=== PATIENT | male | born 1980 | race Caucasian/White ===

== ENCOUNTER 2021-01-07 08:10 | Emergency (ER) | payer MEDICAID, OTHER ==
[~2021-01-07] VITALS: Ht 175.3 cm; Wt 106.0 kg
[2021-01-07 08:12] VITALS: BP 144/94
[2021-01-07] MEDS ORDERED: CARBAMIDE PEROXIDE 6.5% OTIC SOLN 15ML RIGHT EAR ONE (08:30)
== END 2021-01-07 09:29 | disposition home or self-care (01) ==
LOC: ER 08:14
DX: H61.21 Impacted cerumen, right ear (principal); I10 Essential (primary) hypertension
CPT/HCPCS: 99282

== ENCOUNTER 2022-01-08 09:40 | Emergency (ER) | payer MEDICAID ==
[~2022-01-08] VITALS: Ht 170.2 cm; Wt 113.0 kg
[2022-01-08] MEDS ORDERED: IBUPROFEN 600MG TABLET PO ONE (10:15)
[2022-01-08 10:35] VITALS: BP 145/73
[2022-01-08] MEDS ORDERED: SKEL800 MT (11:19)
[2022-01-08] MEDS ORDERED: IBUP-2029 MT (11:19)
== END 2022-01-08 11:46 | disposition home or self-care (01) ==
LOC: ER 09:40
DX: S33.5XXA Sprain of ligaments of lumbar spine, initial encounter (principal); S83.8X2A Sprain of other specified parts of left knee, initial encounter; I10 Essential (primary) hypertension; I25.2 Old myocardial infarction; X58.XXXA Exposure to other specified factors, initial encounter; Y93.89 Activity, other specified; Y92.018 Other place in single-family (private) house as the place of occurrence of the external cause
CPT/HCPCS: 72100; 73560; 99284

== ENCOUNTER 2022-02-10 08:22 | Emergency (ER) | payer MEDICAID ==
[~2022-02-10] VITALS: Ht 170.2 cm; Wt 118.0 kg
[~2022-02-10 08:22] MED LIST: IBUP-2029 MT; SKEL800 MT
[2022-02-10 09:30] VITALS: BP 159/95
== END 2022-02-10 09:32 | disposition home or self-care (01) ==
LOC: ER 08:22
DX: M54.50 Low back pain, unspecified (principal); M25.562 Pain in left knee; I25.2 Old myocardial infarction; I10 Essential (primary) hypertension
CPT/HCPCS: 99281